=== PATIENT | male | born 2000 | race Two or more races ===

== ENCOUNTER 2022-12-29 12:09 | Emergency (ER) | payer SELFPAY ==
[2022-12-29 12:24] VITALS: BP 137/78; PULSE 57; RESP 20; TEMP 36.8; O2SAT 100; BMI 22.2
--- NOTE | 2022-12-29 12:34 | ED.ABDPAIN1 ---
HPI - Abdominal Pain General Chief Complaint: Abdominal Pain Stated Complaint: FLANK PIN Time Seen by Provider: 12/29/22 12:23 Source: family Mode of arrival: Wheelchair Limitations: no limitations History of Present Illness HPI narrative: 22-year-old male presents for nausea vomiting and diarrhea since about 4:00 o'clock this morning. His whole stomach hurts. No fever or blood in his stool or emesis. He had minimal alcohol to drink last night and has been around anybody he's been ill. Last night he felt fine. Related Data Previous Rx's Medication Instructions Recorded ondansetron 4 mg disintegrating 4 mg PO Q6H PRN nausea and 12/29/22 tablet vomiting #20 tabs Allergies Allergy/AdvReac Type Severity Reaction Status Date / Time No Known Drug Allergies Allergy Verified 12/29/22 12:24 Review of Systems ROS Narrative A ten point review of systems is negative except as noted above. Exam Narrative Exam Narrative: Nurses note and vital signs reviewed and patient is not hypoxic. General: The patient appears uncomfortable and in no apparent distress. Skin: Warm, dry, no pallor noted. There is no rash noted. Head: Normocephalic, atraumatic Eye: Normal conjunctiva, no drainage Ears, Nose, Mouth, and Throat: oral mucosa is moist. Nares patent. Cardiovascular: Regular Rate and Rhythm Respiratory: Patient is in no distress, no accessory muscle use, lungs are clear to auscultation, no wheezing, rales or rhonchi Back: non-tender GI: soft and nontender Musculoskeletal: The patient has no evidence of calf tenderness, no pitting edema, symmetrical pulses noted bilaterally Neurological: A&O, normal speech Psychiatric: Cooperative Constitutional Vital Signs, click to edit/add: Last Vital Signs Temp 98.3 F 12/29/22 12:24 Pulse 57 L 12/29/22 12:24 Resp 20 12/29/22 12:24 BP 137/78 H 12/29/22 12:24 Pulse Ox 100 12/29/22 12:24 O2 Del Method Room Air 12/29/22 12:24 Course Vital Signs Vital signs: Vital Signs Temperature 98.3 F 12/29/22 12:24 Pulse Rate 57 L 12/29/22 12:24 Respiratory Rate 20 12/29/22 12:24 Blood Pressure 137/78 H 12/29/22 12:24 Pulse Oximetry 100 12/29/22 12:24 Oxygen Delivery Method Room Air 12/29/22 12:24 Temperature 98.3 F 12/29/22 12:24 Pulse Rate 57 L 12/29/22 12:24 Respiratory Rate 20 12/29/22 12:24 Blood Pressure 137/78 H 12/29/22 12:24 Pulse Oximetry 100 12/29/22 12:24 Oxygen Delivery Method Room Air 12/29/22 12:24 Discharge Plan Discharge Chief Complaint: Abdominal Pain Clinical Impression: Nausea & vomiting Patient Disposition: Home, Self-Care Time of Disposition Decision: 13:36 Condition: Good Mode of Transportation: Private Vehicle Prescriptions / Home Meds: New ondansetron 4 mg tablet,disintegrating 4 mg PO Q6H PRN (Reason: nausea and vomiting) Qty: 20 0RF Instructions: Acute Nausea and Vomiting (ED) Stand Alone Forms: Portal Instructions Referrals: Physician,Non-Staff, MD [Primary Care Provider] - 1 week
[2022-12-29] MEDS: 0.9 % SODIUM CHLORIDE 1,000 ML 999 ML IV (12:47)
[2022-12-29] MEDS: ONDANSETRON PF 4 MG/2 ML VIAL IV (12:47)
[2022-12-29 12:54] VITALS: BP 114/60; PULSE 61; RESP 18; O2SAT 100
[2022-12-29 13:05] LABS: Basophils Percent Auto 0.2 % (0.2-2.0); Hematocrit 43.7 % (42.0-54.0); Hemoglobin 14.9 g/dL (14.0-18.0); Immature Granulocytes Abs Auto 0.05 10^3/uL (0.00-0.03); Immature Granulocytes Pct Auto 0.5 % (0.0-0.5); Lymphocytes Absolute Auto 0.4 10^3/uL (1.2-3.8); Lymphocytes Percent Auto 3.7 % (20.5-60.0); Mean Corpuscular HGB Conc 34.1 g/dL (29.9-35.2); Mean Corpuscular Hemoglobin 31.1 pg (25.9-34.0); Mean Corpuscular Volume 91.2 fL (80.0-94.0); Mean Platelet Volume 10.1 fL (9.5-13.5); Monocytes Absolute Auto 0.2 10^3/uL (0.3-0.8); Monocytes Percent Auto 2.2 % (1.7-12.0); Neutrophils Absolute Auto 9.9 10^3/uL (1.4-6.5); Neutrophils Percent Auto 93.4 % (43.0-75.0); Platelet Count 265 10^3/uL (150-450); Red Blood Count 4.79 10^6/uL (4.70-6.10); Red Cell Distribution Width 11.4 % (11.0-15.0); White Blood Count 10.6 10^3/uL (4.0-11.0)
[2022-12-29 13:23] LABS: Anion Gap 16.6; BUN Creatinine Ratio 9.9; Calcium 9.2 mg/dL (8.5-10.1); Carbon Dioxide 20.6 mmol/L (21.0-32.0); Chloride 107 mmol/L (98-107); Estimated GFR (African America >60 (>=60); Estimated GFR (Non-African Ame >60 (>=60); Glucose 137 mg/dL (74-106); Potassium 4.2 mmol/L (3.5-5.1); Sodium 140 mmol/L (136-145)
[2022-12-29 13:36] VITALS: BP 116/58; PULSE 74; RESP 16; O2SAT 99
== END 2022-12-29 13:46 | disposition home or self-care (01) ==
PROVIDERS: Emergency Provider Emergency Medicine
DX: R11.2 Nausea with vomiting, unspecified (principal)
CPT/HCPCS: 36415; 80048; 85025; 96361; 96374; 99284

== ENCOUNTER 2023-01-09 15:48 | Emergency (ER) | payer SELFPAY ==
[2023-01-09 15:56] VITALS: BP 126/78; PULSE 64; RESP 16; TEMP 37.1; O2SAT 100; BMI 22.4
--- NOTE | 2023-01-09 16:02 | ED.NAVMDI1 ---
HPI - Nausea/Vomiting/Diarrhea General Chief complaint: Nausea/Vomiting/Diarrhea Stated complaint: throwing up and watery stools Time Seen by Provider: 01/09/23 15:55 Source: patient Mode of arrival: walk-in History of Present Illness HPI Narrative: patient is a 22-year-old male who returns to the emergency department for abdominal pain, vomiting and diarrhea. Patient was seen in this emergency department two weeks ago for the same. He states today he has had persistent vomiting and diarrhea, loose watery stool with no blood. He has had no fevers or upper respiratory symptoms. No sick contacts in the home. He denies urinary symptoms. No medications taken prior to arrival. He did not follow-up with a PCP or specialist after his last visit two weeks ago. Related Data Previous Rx's Medication Instructions Recorded ondansetron 4 mg disintegrating 4 mg PO Q6H PRN nausea and 12/29/22 tablet vomiting #20 tabs dicyclomine 20 mg tablet 20 mg PO QID PRN abdominal pain 01/09/23 #12 tabs ondansetron 4 mg disintegrating 4 mg PO Q6H PRN nausea and 01/09/23 tablet vomiting #12 tabs Allergies Allergy/AdvReac Type Severity Reaction Status Date / Time No Known Drug Allergies Allergy Verified 12/29/22 12:24 Review of Systems ROS Constitutional Denies: fever or chills Ears, nose, mouth, and throat Denies: throat pain Cardiovascular Denies: chest pain Respiratory Denies: shortness of breath or cough Gastrointestinal Reports: abdominal pain, nausea, vomiting and diarrhea Genitourinary Denies: painful urination Musculoskeletal Denies: back pain or neck pain Integumentary/Breast Denies: rash Neurological Denies: headache Endocrine Denies: excessive urination Exam Narrative Exam Narrative: Gen.: Awake, alert, in no distress Head: Normocephalic, atraumatic ENT: Moist mucous membranes Respiratory: No respiratory distress, lungs clear bilaterally Cardio: Regular rate and rhythm Gastrointestinal: Abdomen is soft, nondistended and diffusely tender to palpation with no McBurney's point tenderness or pain out of proportion on exam Extremities: Moves extremities equally, no injuries noted Psych: Normal mood and affect Neuro: No focal neuro deficit Skin: Warm, dry, intact Constitutional Vital Signs, click to edit/add: Last Vital Signs Temp 98.8 F 01/09/23 15:56 Pulse 64 01/09/23 15:56 Resp 16 01/09/23 15:56 BP 126/78 H 01/09/23 15:56 Pulse Ox 100 01/09/23 15:56 O2 Del Method Room Air 01/09/23 16:23 Course Vital Signs Vital signs: Vital Signs Temperature 98.8 F 01/09/23 15:56 Pulse Rate 64 01/09/23 15:56 Respiratory Rate 16 01/09/23 15:56 Blood Pressure 126/78 H 01/09/23 15:56 Pulse Oximetry 100 01/09/23 15:56 Oxygen Delivery Method Room Air 01/09/23 15:56 Temperature 98.8 F 01/09/23 15:56 Pulse Rate 64 01/09/23 15:56 Respiratory Rate 16 01/09/23 15:56 Blood Pressure 126/78 H 01/09/23 15:56 Pulse Oximetry 100 01/09/23 15:56 Oxygen Delivery Method Room Air 01/09/23 16:23 MDM - Nausea/Vomiting/Diarrhea MDM Narrative Medical decision making narrative: patient treated with IV fluids, Zofran, Levsin. No episodes of emesis in the Emergency Room. He did not produce a stool specimen in the Emergency Room. Labs studies are unremarkable and CT of the abdomen and pelvis shows no evidence of acute intraperitoneal findings. Patient will be discharged home with Alvaro and Franki. He was found to be positive for marijuana on his drug screen, possible cyclic vomiting contributing to his recurrent symptoms. He is referred to PCP and gastrointestinal. Return to the Emergency Room if symptoms change or worsen Medical Records Attestation: I reviewed the patient's medical records. Lab Data Attestation: I reviewed the patient's lab results. Labs: Lab Results 01/09/23 Range/Units 16:10 WBC 8.6 (4.0-11.0) 10^3/uL RBC 5.10 (4.70-6.10) 10^6/uL Hgb 15.9 (14.0-18.0) g/dL Hct 46.1 (42.0-54.0) % MCV 90.4 (80.0-94.0) fL MCH 31.2 (25.9-34.0) pg MCHC 34.5 (29.9-35.2) g/dL RDW 11.5 (11.0-15.0) % Plt Count 288 (150-450) 10^3/uL MPV 10.2 (9.5-13.5) fL Neut % (Auto) 76.6 H (43.0-75.0) % Lymph % (Auto) 16.7 L (20.5-60.0) % Rock % (Auto) 5.2 (1.7-12.0) % Eos % (Auto) 0.9 (0.9-7.0) % Baso % (Auto) 0.3 (0.2-2.0) % Neut # (Auto) 6.6 H (1.4-6.5) 10^3/uL Lymph # (Auto) 1.4 (1.2-3.8) 10^3/uL Rock # (Auto) 0.5 (0.3-0.8) 10^3/uL Eos # (Auto) 0.1 (0.0-0.7) 10^3/uL Baso # (Auto) 0.0 (0.0-0.1) 10^3/uL Abs Immat Gran (auto) 0.03 (0.00-0.03) 10^3/uL Imm/Tot Granulo (auto) 0.3 (0.0-0.5) % Sodium 142 (136-145) mmol/L Potassium 3.8 (3.5-5.1) mmol/L Chloride 104 (98-107) mmol/L Carbon Dioxide 27.7 (21.0-32.0) mmol/L Anion Gap 14.1 BUN 15.0 (7.0-18.0) mg/dL Creatinine 0.68 L (0.70-1.30) mg/dL Est GFR ( Amer) >60 (>=60) Est GFR (Non-Af Amer) >60 (>=60) BUN/Creatinine Ratio 22.1 Glucose 90 (74-106) mg/dL Lactate 0.8 (0.4-2.0) mmol/L Calcium 9.3 (8.5-10.1) mg/dL Total Bilirubin 1.2 H (0.2-1.0) mg/dL AST 25 (15-37) U/L ALT 32 (16-63) U/L Alkaline Phosphatase 73 (46-116) U/L Total Protein 7.8 (6.4-8.2) g/dL Albumin 4.6 (3.4-5.0) g/dL Globulin 3.2 g/dL Albumin/Globulin Ratio 1.4 Lipase 166.0 (73.0-393.0) U/L Urine Color Yellow (YELLOW) Urine Clarity Clear (CLEAR) Urine pH 5.5 (5.0-9.0) Ur Specific [employer] 1.025 (1.005-1.025) Urine Protein Negative (NEG/TRACE) mg/dL Urine Glucose (UA) Negative (NEGATIVE) mg/dL Urine Ketones 40 A (NEGATIVE) mg/dL Urine Occult Blood Small A (NEGATIVE) Urine Nitrite Negative (NEGATIVE) Urine Bilirubin Negative (NEGATIVE) Urine Urobilinogen 0.2 (0.2-1.0) EU/dL Ur Leukocyte Esterase Negative (NEGATIVE) Urine RBC 0-2 (0-2) #/HPF Urine WBC None seen (NONE SEEN) #/HPF Ur Squamous Epith Cells Rare (NONE/RARE) #/LPF Urine Crystals None seen (None Seen) #/HPF Urine Bacteria Trace A (NONE SEEN) #/HPF Urine Casts None seen (NONE SEEN) #/LPF Urine Mucus Moderate A (NONE SEEN) Ur Culture Indicated? No Urine Opiates Screen Negative (NEGATIVE) Ur Buprenorphine Scrn Negative (NEGATIVE) Ur Oxycodone Screen Negative (NEGATIVE) Urine Methadone Screen Negative (NEGATIVE) Ur Propoxyphene Screen Negative (NEGATIVE) Ur Barbiturates Screen Negative (NEGATIVE) U Tricyclic Antidepress Negative (NEGATIVE) Ur Phencyclidine Scrn Negative (NEGATIVE) Ur Amphetamines Screen Negative (NEGATIVE) U Methamphetamines Scrn Negative (NEGATIVE) U Benzodiazepines Scrn Negative (NEGATIVE) Urine Cocaine Screen Negative (NEGATIVE) U Cannabinoids Screen Positive A (NEGATIVE) Imaging Data CT scan - abdomen: Attestation: I have reviewed the pertinent imaging results. Radiologist's impression: Procedure: CT abdomen pelvis w con EXAM: CT abdomen pelvis w con HISTORY: Abdominal pain COMPARISON: None. FINDINGS: Verse Writer: No pertinent findings, which are not already discussed below. Tubes/lines/drains: None. CHEST: Lungs: Clear. Mediastinum: No cardiomegaly or significant pericardial effusion. ABDOMEN: Liver: Unremarkable. Gallbladder and Biliary Tree: Unremarkable. Spleen: Unremarkable. Pancreas: Unremarkable. Adrenal Glands: Unremarkable. Kidneys, Ureters, Bladder: No concerning renal lesions or masses. No urolithiasis. No hydronephrosis or hydroureterosis. Unremarkable bladder. Gastrointestinal: No mural thickening or inflammatory changes. No dilated loops of small or large bowel. Normal appendix. No free air or free fluid. Reproductive organ(s): 7 mm hypodensity within the prostate, midline, likely benign prostatic utricle cyst versus mullerian duct cyst. Lymphatic: Unremarkable. Vessels: Unremarkable. BONES AND SOFT TISSUE: Bones: No acute fracture. No concerning osseous lesions. Soft Tissue: Within normal limits. IMPRESSION: No acute intra-abdominal/pelvic findings. Electronically authenticated by: JEVON FOY Date: 01/09/2023 17:27 Discharge Plan Discharge Chief Complaint: Nausea/Vomiting/Diarrhea Clinical Impression: Abdominal pain, Nausea & vomiting, Diarrhea Patient Disposition: Home, Self-Care Time of Disposition Decision: 17:35 Condition: Good Prescriptions / Home Meds: New dicyclomine 20 mg tablet 20 mg PO QID PRN (Reason: abdominal pain) Qty: 12 0RF ondansetron 4 mg tablet,disintegrating 4 mg PO Q6H PRN (Reason: nausea and vomiting) Qty: 12 0RF No Action ondansetron 4 mg tablet,disintegrating 4 mg PO Q6H PRN (Reason: nausea and vomiting) Qty: 20 0RF Instructions: Acute Nausea and Vomiting (DC), Acute Diarrhea (ED), Abdominal Pain (ED) Additional Instructions: Follow up with Dr. Vazquez in [place] Stand Alone Forms: Portal Instructions Referrals: Physician,Non-Staff, MD [Primary Care Provider] - 1 week
--- NOTE | 2023-01-09 16:07 | CT_ITS ---
The [address] [address] Patient Name: SHEN FARRAR MRN: [id number] date: 2000 Sex: M Assigned Patient Location: ER Current Patient Location: ER Accession/Order Number: [id number] Exam Date: 01/09/2023 16:30 Report Date: 01/09/2023 17:27 At the request of: LAI ALDANA Procedure: CT abdomen pelvis w con EXAM: CT abdomen pelvis w con HISTORY: Abdominal pain COMPARISON: None. FINDINGS: Upper Tier: No pertinent findings, which are not already discussed below. Tubes/lines/drains: None. CHEST: Lungs: Clear. Mediastinum: No cardiomegaly or significant pericardial effusion. ABDOMEN: Liver: Unremarkable. Gallbladder and Biliary Tree: Unremarkable. Spleen: Unremarkable. Pancreas: Unremarkable. Adrenal Glands: Unremarkable. Kidneys, Ureters, Bladder: No concerning renal lesions or masses. No urolithiasis. No hydronephrosis or hydroureterosis. Unremarkable bladder. Gastrointestinal: No mural thickening or inflammatory changes. No dilated loops of small or large bowel. Normal appendix. No free air or free fluid. Reproductive organ(s): 7 mm hypodensity within the prostate, midline, likely benign prostatic utricle cyst versus mullerian duct cyst. Lymphatic: Unremarkable. Vessels: Unremarkable. BONES AND SOFT TISSUE: Bones: No acute fracture. No concerning osseous lesions. Soft Tissue: Within normal limits. CT/CT abdomen pelvis w con IMPRESSION: No acute intra-abdominal/pelvic findings. Electronically authenticated by: JEVON FOY Date: 01/09/2023 17:27
[2023-01-09] MEDS: ONDANSETRON PF 4 MG/2 ML VIAL IV (16:15)
[2023-01-09] MEDS: 0.9 % SODIUM CHLORIDE 1,000 ML 100 ML IV (16:15)
[2023-01-09] MEDS: HYOSCYAMINE SULFATE 0.125 MG TAB.SUBL SL (16:15)
--- NOTE | 2023-01-09 16:24 | PC.NURSE ---
nausea med given and no vomiting or diarrhea at this time
[2023-01-09 16:38] LABS: Basophils Percent Auto 0.3 % (0.2-2.0); Eosinophils Absolute Auto 0.1 10^3/uL (0.0-0.7); Eosinophils Percent Auto 0.9 % (0.9-7.0); Hematocrit 46.1 % (42.0-54.0); Hemoglobin 15.9 g/dL (14.0-18.0); Immature Granulocytes Abs Auto 0.03 10^3/uL (0.00-0.03); Immature Granulocytes Pct Auto 0.3 % (0.0-0.5); Lymphocytes Absolute Auto 1.4 10^3/uL (1.2-3.8); Lymphocytes Percent Auto 16.7 % (20.5-60.0); Mean Corpuscular HGB Conc 34.5 g/dL (29.9-35.2); Mean Corpuscular Hemoglobin 31.2 pg (25.9-34.0); Mean Corpuscular Volume 90.4 fL (80.0-94.0); Mean Platelet Volume 10.2 fL (9.5-13.5); Monocytes Absolute Auto 0.5 10^3/uL (0.3-0.8); Monocytes Percent Auto 5.2 % (1.7-12.0); Neutrophils Absolute Auto 6.6 10^3/uL (1.4-6.5); Neutrophils Percent Auto 76.6 % (43.0-75.0); Platelet Count 288 10^3/uL (150-450); Red Cell Distribution Width 11.5 % (11.0-15.0); White Blood Count 8.6 10^3/uL (4.0-11.0)
[2023-01-09 16:57] LABS: Bilirubin Urine NEGATIVE (NEGATIVE); Blood Urine SMALL (NEGATIVE); Clarity Urine CLEAR (CLEAR); Color Urine YELLOW (YELLOW); Glucose Urine UA NEGATIVE (NEGATIVE); Ketones Urine 40 mg/dL (NEGATIVE); Leukocyte Esterase Urine NEGATIVE (NEGATIVE); Nitrite Urine NEGATIVE (NEGATIVE); Protein Urine NEGATIVE (NEG/TRACE); Specific Gravity Urine 1.025 (1.005-1.025); Urobilinogen Urine 0.2 EU/dL (0.2-1.0); pH Urine 5.5 (5.0-9.0)
[2023-01-09 16:58] LABS: Urine Microscopic Indicated YES
[2023-01-09 17:01] LABS: Alanine Aminotransferase 32 U/L (16-63); Albumin Globulin Ratio 1.4; Albumin Level 4.6 g/dL (3.4-5.0); Alkaline Phosphatase 73 U/L (46-116); Anion Gap 14.1; Aspartate Amino Transferase 25 U/L (15-37); BUN Creatinine Ratio 22.1; Bilirubin Total 1.2 mg/dL (0.2-1.0); Calcium 9.3 mg/dL (8.5-10.1); Carbon Dioxide 27.7 mmol/L (21.0-32.0); Chloride 104 mmol/L (98-107); Estimated GFR (African America >60 (>=60); Estimated GFR (Non-African Ame >60 (>=60); Globulin 3.2 g/dL; Glucose 90 mg/dL (74-106); Potassium 3.8 mmol/L (3.5-5.1); Sodium 142 mmol/L (136-145); Total Protein 7.8 g/dL (6.4-8.2)
[2023-01-09 17:03] LABS: Amphetamine Screen Urine NEGATIVE (NEGATIVE); Barbiturates Screen Urine NEGATIVE (NEGATIVE); Benzodiazepines Screen Urine NEGATIVE (NEGATIVE); Buprenorphine Screen Urine NEGATIVE (NEGATIVE); Cannabinoid Screen Urine POSITIVE (NEGATIVE); Cocaine Screen Urine NEGATIVE (NEGATIVE); Methadone Screen Urine NEGATIVE (NEGATIVE); Methamphetamines Screen Urine NEGATIVE (NEGATIVE); Opiate Screen Urine NEGATIVE (NEGATIVE); Oxycodone Screen Urine NEGATIVE (NEGATIVE); Phencyclidine Screen Urine NEGATIVE (NEGATIVE); Tricyclic Antidepressant Urine NEGATIVE (NEGATIVE)
[2023-01-09 17:09] LABS: Bacteria Urine TRACE #/HPF (NONE SEEN); Cast Seen? NONE SEEN #/LPF (NONE SEEN); Crystals Seen? None Seen #/HPF (None Seen); Mucus Urine MODERATE (NONE SEEN); RBC Urine 0-2 #/HPF (0-2); Squamous Epithelial Cell Urine RARE #/LPF (NONE/RARE); WBC Urine NONE SEEN #/HPF (NONE SEEN)
[2023-01-09 17:10] LABS: Urine Culture Indicated NO
[2023-01-09 17:16] LABS: Lactate/Lactic Acid 0.8 mmol/L (0.4-2.0)
[2023-01-09 17:51] VITALS: BP 126/89; RESP 16; O2SAT 99
== END 2023-01-09 17:54 | disposition home or self-care (01) ==
PROVIDERS: Physician Assistant; Emergency Provider Emergency Medicine Emergency Medical Services
DX: R11.2 Nausea with vomiting, unspecified (principal); R10.9 Unspecified abdominal pain; R19.7 Diarrhea, unspecified
CPT/HCPCS: 36415; 74177; 80053; 80307; 81003; 81015; 83605; 83690; 85025; 87507; 96374; 99285; Q9967